=== PATIENT | female | born 1990 | race Caucasian/White ===

== ENCOUNTER 2017-10-05 14:42 | Outpatient (CLI) | payer OTHER | END 2017-10-05 14:43 | disposition home or self-care (01) | LOC: LAB 14:42 | DX: O09.92 Supervision of high risk pregnancy, unspecified, second trimester (principal) ==

== ENCOUNTER 2017-10-30 22:55 | Emergency (ER) | payer OTHER ==
[~2017-10-30] VITALS: Ht 160 cm; Wt 62.6 kg
[2017-10-31] MEDS ORDERED: KEFLEX500 MG PO (04:43)
== END 2017-10-31 05:45 | disposition home or self-care (01) ==
LOC: ER 22:55
DX: Z34.02 Encounter for supervision of normal first pregnancy, second trimester (principal); R10.2 Pelvic and perineal pain; N39.0 Urinary tract infection, site not specified

== ENCOUNTER 2018-01-14 13:28 | Outpatient (CLI) | payer OTHER ==
[~2018-01-14 13:28] MED LIST: KEFLEX500 MG PO
== END 2018-01-14 13:43 | disposition home or self-care (01) ==
LOC: SONOGRAMA 13:28
DX: O36.5920 Maternal care for other known or suspected poor fetal growth, second trimester, not applicable or unspecified (principal)

== ENCOUNTER 2018-01-26 12:11 | Outpatient (CLI) | payer OTHER ==
[2018-01-26] MEDS ORDERED: PRENATAL TABLE1 EAC2 PO (12:46)
[2018-01-26] MEDS ORDERED: FOLIC ACID1 MG PO (12:46)
[2018-01-27] MEDS ORDERED: LIDODERM1 EACH TOP (18:45)
== END 2018-01-27 20:30 | disposition home or self-care (01) ==
LOC: OBS/DEL 12:11
DX: O26.892 Other specified pregnancy related conditions, second trimester (principal); R10.2 Pelvic and perineal pain; O60.02 Preterm labor without delivery, second trimester; Z34.02 Encounter for supervision of normal first pregnancy, second trimester

== ENCOUNTER 2018-04-01 12:30 | Inpatient (IN) | payer OTHER ==
[~2018-04-01] VITALS: Ht 162.6 cm; Wt 3.6 kg
[~2018-04-01 12:30] MED LIST changes: +FOLIC ACID1 MG PO; +LIDODERM1 EACH TOP; +PRENATAL TABLE1 EAC2 PO
[2018-04-22] MEDS ORDERED: IRON18 MG PO (23:12)
== END 2018-04-26 12:58 | disposition home or self-care, planned readmission (81) | DRG 766 ==
LOC: LDR 04-22 22:13 → SURG-SUITE 04-24 00:31
PROVIDERS: Specialist
PROC: 4A1HXCZ Monitoring of Products of Conception, Cardiac Rate, External Approach (ICD-10-PCS; 2018-04-22)
PROC: 3E033VJ Introduction of Other Hormone into Peripheral Vein, Percutaneous Approach (ICD-10-PCS; 2018-04-23)
PROC: 4A033R1 Measurement of Arterial Saturation, Peripheral, Percutaneous Approach (ICD-10-PCS; 2018-04-23)
PROC: 10D00Z1 Extraction of Products of Conception, Low, Open Approach (ICD-10-PCS; principal; 2018-04-23 21:00)
DX: O61.0 Failed medical induction of labor (principal); O33.5XX0 Maternal care for disproportion due to unusually large fetus, not applicable or unspecified; Z37.0 Single live birth; Z3A.40 40 weeks gestation of pregnancy; Z22.330 Carrier of Group B streptococcus